=== PATIENT | female | born 1970 | race African-American/Black ===

== ENCOUNTER 2018-12-19 16:05 | Emergency (ER) | payer OTHER ==
[2018-12-19 16:17] VITALS: BP 176/116; PULSE 91; TEMP 98.1; BMI 30.2
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
[2018-12-19] MEDS ORDERED: ACETAMINOPHEN 325 MG TABLET (FP) PO ONE (22:57)
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
[2018-12-20] MEDS ORDERED: ALBUTEROL SO4 2.5/IPRATROPIUM 0.5 INH SOL 3 ML VIAL.NEB. NEB ONE (00:06)
[2018-12-20] MEDS ORDERED: ACETAMINOPHEN 325 MG TABLET (FP) ONE (00:07)
== END 2018-12-20 00:33 | disposition home or self-care (01) ==
LOC: JER 16:05
DX: M54.6 Pain in thoracic spine (principal); M54.2 Cervicalgia; V73.6XXA Passenger on bus injured in collision with car, pick-up truck or van in traffic accident, initial encounter; Y92.414 Local residential or business street as the place of occurrence of the external cause; Y93.89 Activity, other specified; Y99.8 Other external cause status
CPT/HCPCS: 72125-TC; 72128-TC; 99282-25